=== PATIENT | male | born 1980 | race Caucasian/White ===

== ENCOUNTER 2017-05-29 07:37 | Emergency (ER) | payer SELFPAY ==
--- NOTE | 2017-05-29 08:03 | Emergency Department Record ---
History of Present Illness - General Chief complaint: Flank Pain Stated complaint: KIDNEY STONE Time Seen by Provider: 05/29/17 07:52 Source: Patient, RN notes reviewed Mode of Arrival: Ambulatory - History of Present Illness Initial comments: suprapubic abdominal pain and radiates into the bladder and [facility] and no signs of UTI(apr). Patient denies STD and one sexual partner in [facility] but doesn't talk to her much. Dripping from the penis. Patient said he has been having some [place]om[place] suprapubic since 2017. The pain got worse couple hours ago. MD Complaint: Dysuria Onset/Timin -: Days(s) Location: Abdomen, Penis, Left flank, Right flank - Related Data Previous Rx's Medication Instructions Recorded Hydrocodone/Acetaminophen [[place] 1 each PO Q6HR #20 tablet 05/29/17 5-325 Tablet] Allergies Allergy/AdvReac Type Severity Reaction Status Date / Time No Known Drug Allergies Allergy Verified 05/29/17 07:39 Travel Screening - Travel/Exposure Within Last 30 Days Have you traveled within the last 30 days?: No - Travel/Exposure Within Last Year Have you traveled outside the [place] in the last year?: No - Additonal Travel Details Have you been exposed to anyone with a communicable illness?: No - Travel Symptoms Symptom Screening: None Review of Systems Reviewed: No additional complaints except as noted below Constitutional: Reports: As per HPI. Denies: Chills, Fever, Malaise, Night sweats, Weakness, Weight change Eyes: Reports: As per HPI. Denies: Eye discharge, Eye pain, Photophobia, Vision change ENT: Reports: As per HPI. Denies: Congestion, Dental pain, Ear pain, Epistaxis , Hearing loss, Throat pain Respiratory: Reports: As per HPI. Denies: Cough, Dyspnea, Hemoptysis, Stridor, Wheezes Cardiovascular: Reports: As per HPI. Denies: Arrhythmia, Chest pain, Dyspnea on exertion, Edema, Murmurs, Orthopnea, Palpitations, Paroxysmal nocturnal dyspnea, Rheumatic Fever, Syncope Endocrine: Reports: As per HPI. Denies: Fatigue, Heat or cold intolerance, Polydipsia, Polyuria Gastrointestinal: Reports: As per HPI. Denies: Abdominal pain, Constipation, Diarrhea, Hematemesis, Hematochezia, Melena, Nausea, Vomiting Genitourinary: Reports: As per HPI, Dysuria. Denies: Frequency, Hematuria, Incontinence, Retention, Testicular pain, Testicular mass, Urgency Musculoskeletal: Reports: As per HPI. Denies: Arthralgia, Back pain, Gout, Joint swelling, Myalgia, Neck pain Skin: Reports: As per HPI. Denies: Bruising, Change in color, Change in hair/ nails, Lesions, Pruritus, Rash Neurological: Reports: As per HPI. Denies: Abnormal gait, Confusion, Headache, Numbness, Paresthesias, Seizure, Tingling, Tremors, Vertigo, Weakness Psychiatric: Reports: As per HPI. Denies: Anxiety, Auditory hallucinations, Depression, Homicidal thoughts, Suicidal thoughts, Visual hallucinations Hematological/Lymphatic: Reports: As per HPI. Denies: Anemia, Blood Clots, Easy bleeding, Easy bruising, Swollen glands Past Medical History - SOCIAL HISTORY Smoking Status: Light tobacco smoker (<10/day) Alcohol Use: None Drug Use Detail:: Marijuana - RESPIRATORY Hx Respiratory Disorders: No - CARDIOVASCULAR Hx Cardio Disorders: No - NEURO Hx Neuro Disorders: No - GI Hx GI Disorders: Yes Hx Irritable Bowel: Yes - Hx Genitourinary Disorders: Yes - ENDOCRINE Hx Endocrine Disorders: No - MUSCULOSKELETAL Hx Musculoskeletal Disorders: No - PSYCH Hx Psych Problems: No - HEMATOLOGY/ONCOLOGY Hx Hematology/Oncology Disorders: No Family Medical History Any Significant Family History?: Yes Family Hx Comment (NOT TO BE USED IN PLACE OF ITEMS BELOW): Mom has MS, Aunt diabetic, uncles have MD. Physical Exam - General General Appearance: Alert, Oriented x3, Cooperative, No acute distress, Moderate distress - Head Head exam: Normal inspection - Eye Eye exam: Normal appearance, PERRL Pupils: Normal accommodation - ENT ENT exam: Normal exam, Mucous membranes moist, Normal external ear exam, Normal orophraynx, TM's normal bilaterally Ear exam: Normal external inspection. negative: External canal tenderness Nasal Exam: Normal inspection. negative: Discharge, Sinus tenderness Mouth exam: Normal external inspection, Tongue normal Teeth exam: Normal inspection. negative: Dental caries Throat exam: Normal inspection. negative: Tonsillar erythema, Tonsillar exudate - Neck Neck exam: Normal inspection, Full ROM. negative: Tenderness - Respiratory Respiratory exam: Normal lung sounds bilaterally. negative: Respiratory distress - Cardiovascular Cardiovascular Exam: Regular rate, Normal rhythm, Normal heart sounds - GI/Abdominal GI/Abdominal exam: Soft, Tenderness - Rectal Rectal exam: Normal prostate. negative: Black stool, Bloody stool, Decreased rectal tone, Fecal impaction, Prostate enlargement, Prostate tenderness, Tenderness - exam: Normal inspection, Urethral discharge - Extremities Extremities exam: Normal inspection, Full ROM, Normal capillary refill. negative: Tenderness - Back Back exam: Reports: Normal inspection, Full ROM. Denies: Muscle spasm, Rash noted, Tenderness - Neurological Neurological exam: Alert, Normal gait, Oriented X3, Reflexes normal - Psychiatric Psychiatric exam: Normal affect, Normal mood - Skin Skin exam: Dry, Intact, Normal color, Warm Course Vital Signs 05/29/17 07:39 Temperature 97.9 F Pulse Rate 79 Respiratory 12 Rate Blood Pressure 141/105 Pulse Ox 99 - Reevaluation(s) Reevaluation #1: patient pain free now 05/29/17 10:15 Medical Decision Making - Data Complexity MDM Data: Labs Ordered and/or Reviewed, X-Ray Ordered and/or Reviewed (CT scan kidney stone at the UV junction. 5mm) - Lab Data Result diagrams: 05/29/17 08:10 05/29/17 08:10 Disposition Clinical Impression: Dysuria, Kidney stone on right side Abdominal pain Qualifiers: Abdominal location: lower abdomen, unspecified Qualified Code(s): R10.30 - Lower abdominal pain, unspecified Hydronephrosis Qualifiers: Hydronephrosis type: with renal calculous obstruction Qualified Code(s): N13.2 - Hydronephrosis with renal and ureteral calculous obstruction Disposition: Home, Self-Care Condition: (1) Good Instructions: Flank Pain (ED), Kidney Stones (ED), How to Strain Your Urine (ED ) Additional Instructions: follow up with Dr mcdaniel in 8 days return if fever, vomiting or severe pain norco for severe pain or use tylenol or motrin OTC for mild pain. save stone for analysis Prescriptions: Hydrocodone/Acetaminophen [[place] 5-325 Tablet] 1 each PO Q6HR #20 tablet Forms: Patient Portal Access Time of Disposition: 10:14 Quality - Quality Measures Quality Measures: N/A - Blood Pressure Screening Does Patient Have Any of the Following: No Blood Pressure Classification: Hypertensive Reading Systolic Measurement: 141 Diastolic Measurement: 105 Screening for High Blood Pressure: < Pre-Hypertensive BP, F/U Documented > [ G8950] Pre-Hypertensive Follow-up Interventions: Referral to alternative/primary care provider.
[2017-05-29] MEDS: KETOROLAC 30 MG/ML VIAL IVP ONE (08:16)
[2017-05-29] MEDS: 0.9 % SODIUM CHLORIDE 1,000 ML BAG IV ONE (08:16)
[2017-05-29 08:23] LABS: BASO % 0.7 % (0-6); EOS % 5.1 % (0-6); GRAN % 67.5 % (47-80); HEMATOCRIT 47.5 % (42.0-52.0); HEMOGLOBIN 16.8 gm/dl (14.0-18.0); LYMPH % 17.6 % (16-45); MEAN CELL VOLUME 79.8 fl (81-97); MEAN CORPUSCULAR HEMOGLOBIN 28.2 pg (27-33); MEAN CORPUSCULAR HGB CONC 35.4 g/dl (32-36); MEAN PLATELET VOLUME 9.4 fl (7.4-10.4); MONO % 9.1 % (0-9); PLATELET COUNT 324 K/uL (130-400); RED BLOOD COUNT 5.95 M/uL (4.40-5.70); RED CELL DISTRIBUTION WIDTH 12.5 % (11.5-14.5); WHITE BLOOD COUNT W/O DIFF 9.1 K/uL (4.2-12.2)
[2017-05-29 08:26] LABS: URINE APPEARANCE CLEAR; URINE BILIRUBIN NEGATIVE (NEGATIVE); URINE BLOOD LARGE (NEGATIVE); URINE COLOR YELLOW; URINE GLUCOSE (UA) NEGATIVE (NEGATIVE); URINE KETONE NEGATIVE (NEGATIVE); URINE LEUKOCYTE ESTERASE NEGATIVE (NEGATIVE); URINE NITRITE NEGATIVE (NEGATIVE); URINE PROTEIN NEGATIVE (NEGATIVE); URINE UROBILINOGEN 0.2 E.U./dL (0.20 - 1.00)
[2017-05-29 08:28] LABS: AMPHETAMINE SCREEN URINE NOT DETECTED; BARBITURATE SCREEN URINE NOT DETECTED; BENZODIAZEPINE SCREEN URINE NOT DETECTED; COCAINE SCREEN URINE NOT DETECTED; METHADONE SCREEN URINE NOT DETECTED; METHAMPHETAMINE SCREEN NOT DETECTED; OPIATE SCREEN URINE NOT DETECTED; OXYCODONE SCREEN URINE NOT DETECTED; PHENCYCLIDINE SCREEN URINE NOT DETECTED; PROPOXYPHENE SCREEN URINE NOT DETECTED; THC SCREEN URINE DETECTED; TRICYCLIC ANTIDEPRESSANT SCRN NOT DETECTED
[2017-05-29 08:32] LABS: BLOOD UREA NITROGEN 8 mg/dL (6-20)
[2017-05-29 08:33] LABS: CREATININE 0.9 mg/dL (0.7-1.2); EST GLOMERULAR FILTRATION RATE > 60 mL/min; URINE BACTERIA FEW; URINE EPITHELIAL CELLS 0 - 2 (FEW); URINE WBC 0 - 2 (0-2/hpf)
[2017-05-29 08:35] LABS: GLUCOSE,RANDOM 107 mg/dL (74-109)
[2017-05-29 08:38] LABS: LIPASE 41 U/L (13-60)
--- NOTE | 2017-05-29 10:22 | Emergency Department Record ---
History of Present Illness - General Chief complaint: Flank Pain Stated complaint: KIDNEY STONE Time Seen by Provider: 05/29/17 07:52 Source: Patient, RN notes reviewed Mode of Arrival: Ambulatory - History of Present Illness Onset/Timin -: Days(s) Location: Abdomen, Penis, Left flank, Right flank - Related Data Previous Rx's Medication Instructions Recorded Hydrocodone/Acetaminophen [[place] 1 each PO Q6HR #20 tablet 05/29/17 5-325 Tablet] Tamsulosin HCl [Flomax] 0.4 mg PO DAILY #10 cap.er.24h 05/29/17 Allergies Allergy/AdvReac Type Severity Reaction Status Date / Time No Known Drug Allergies Allergy Verified 05/29/17 07:39 Travel Screening - Travel/Exposure Within Last 30 Days Have you traveled within the last 30 days?: No - Travel/Exposure Within Last Year Have you traveled outside the [place] in the last year?: No - Additonal Travel Details Have you been exposed to anyone with a communicable illness?: No - Travel Symptoms Symptom Screening: None Review of Systems Constitutional: Reports: As per HPI. Denies: Chills, Fever, Malaise, Night sweats, Weakness, Weight change Eyes: Reports: As per HPI. Denies: Eye discharge, Eye pain, Photophobia, Vision change ENT: Reports: As per HPI. Denies: Congestion, Dental pain, Ear pain, Epistaxis , Hearing loss, Throat pain Respiratory: Reports: As per HPI. Denies: Cough, Dyspnea, Hemoptysis, Stridor, Wheezes Cardiovascular: Reports: As per HPI. Denies: Arrhythmia, Chest pain, Dyspnea on exertion, Edema, Murmurs, Orthopnea, Palpitations, Paroxysmal nocturnal dyspnea, Rheumatic Fever, Syncope Endocrine: Reports: As per HPI. Denies: Fatigue, Heat or cold intolerance, Polydipsia, Polyuria Gastrointestinal: Reports: As per HPI. Denies: Abdominal pain, Constipation, Diarrhea, Hematemesis, Hematochezia, Melena, Nausea, Vomiting Genitourinary: Reports: As per HPI, Dysuria. Denies: Frequency, Hematuria, Incontinence, Retention, Testicular pain, Testicular mass, Urgency Musculoskeletal: Reports: As per HPI. Denies: Arthralgia, Back pain, Gout, Joint swelling, Myalgia, Neck pain Skin: Reports: As per HPI. Denies: Bruising, Change in color, Change in hair/ nails, Lesions, Pruritus, Rash Neurological: Reports: As per HPI. Denies: Abnormal gait, Confusion, Headache, Numbness, Paresthesias, Seizure, Tingling, Tremors, Vertigo, Weakness Psychiatric: Reports: As per HPI. Denies: Anxiety, Auditory hallucinations, Depression, Homicidal thoughts, Suicidal thoughts, Visual hallucinations Hematological/Lymphatic: Reports: As per HPI. Denies: Anemia, Blood Clots, Easy bleeding, Easy bruising, Swollen glands Past Medical History - SOCIAL HISTORY Smoking Status: Light tobacco smoker (<10/day) Alcohol Use: None Drug Use Detail:: Marijuana - RESPIRATORY Hx Respiratory Disorders: No - CARDIOVASCULAR Hx Cardio Disorders: No - NEURO Hx Neuro Disorders: No - GI Hx GI Disorders: Yes Hx Irritable Bowel: Yes - Hx Genitourinary Disorders: Yes - ENDOCRINE Hx Endocrine Disorders: No - MUSCULOSKELETAL Hx Musculoskeletal Disorders: No - PSYCH Hx Psych Problems: No - HEMATOLOGY/ONCOLOGY Hx Hematology/Oncology Disorders: No Family Medical History Any Significant Family History?: Yes Family Hx Comment (NOT TO BE USED IN PLACE OF ITEMS BELOW): Mom has MS, Aunt diabetic, uncles have MD. Course Vital Signs 05/29/17 05/29/17 07:39 09:10 Temperature 97.9 F 98.7 F Pulse Rate 79 Pulse Rate [ 87 Pulse Ox Probe] Respiratory 12 14 Rate Blood Pressure 141/105 Blood Pressure 128/89 [Left Arm] Pulse Ox 99 98 Medical Decision Making - Lab Data Result diagrams: 05/29/17 08:10 05/29/17 08:10 Lab Results 05/29/17 05/29/17 05/29/17 Range/Units 08:10 08:10 08:10 WBC 9.1 (4.2-12.2) K/uL RBC 5.95 H (4.40-5.70) M/uL Hgb 16.8 (14.0-18.0) gm/dl Hct 47.5 (42.0-52.0) % MCV 79.8 L (81-97) fl MCH 28.2 (27-33) pg MCHC 35.4 (32-36) g/dl RDW 12.5 (11.5-14.5) % Plt Count 324 (130-400) K/uL MPV 9.4 (7.4-10.4) fl Gran % 67.5 (47-80) % Lymphocytes % 17.6 (16-45) % Monocytes % 9.1 H (0-9) % Eosinophils % 5.1 (0-6) % Basophils % 0.7 (0-6) % Sodium 137 (136-145) mmol/L Potassium 3.5 (3.4-4.5) mmol/L Chloride 99 (98-107) mmol/L Carbon Dioxide 24.0 (22-29) mmol/L Anion Gap 14.0 (7-16) BUN 8 (6-20) mg/dL Creatinine 0.9 (0.7-1.2) mg/dL Estimated GFR > 60 mL/min Random Glucose 107 (74-109) mg/dL Calcium 9.1 (8.6-10.0) mg/dL Lipase 41 (13-60) U/L Urine Color Yellow Urine Appearance Clear Urine pH 6.0 (5.0-8.0) Ur Specific [place] <= 1.005 (1.002-1.030) Urine Protein Negative (NEGATIVE) Urine Glucose (UA) Negative (NEGATIVE) Urine Ketones Negative (NEGATIVE) Urine Blood Large H (NEGATIVE) Urine Nitrite Negative (NEGATIVE) Urine Bilirubin Negative (NEGATIVE) Urine Urobilinogen 0.2 (0.20 - 1.00) E.U./dL Ur Leukocyte Esterase Negative (NEGATIVE) Urine RBC 7 - 10 (NONE SEEN) Urine WBC 0 - 2 (0-2/hpf) Ur Epithelial Cells 0 - 2 (FEW) Urine Bacteria Few Urine Opiates Screen Ur Oxycodone Screen Urine Methadone Screen Ur Propoxyphene Screen Ur Barbituates Screen Ur Tricyclics Screen Ur Phencyclidine Scrn Ur Amphetamine Screen U Methamphetamines Scrn U Benzodiazepines Scrn Urine Cocaine Screen Urine Cannabis Screen 05/29/17 Range/Units 08:10 WBC (4.2-12.2) K/uL RBC (4.40-5.70) M/uL Hgb (14.0-18.0) gm/dl Hct (42.0-52.0) % MCV (81-97) fl MCH (27-33) pg MCHC (32-36) g/dl RDW (11.5-14.5) % Plt Count (130-400) K/uL MPV (7.4-10.4) fl Gran % (47-80) % Lymphocytes % (16-45) % Monocytes % (0-9) % Eosinophils % (0-6) % Basophils % (0-6) % Sodium (136-145) mmol/L Potassium (3.4-4.5) mmol/L Chloride (98-107) mmol/L Carbon Dioxide (22-29) mmol/L Anion Gap (7-16) BUN (6-20) mg/dL Creatinine (0.7-1.2) mg/dL Estimated GFR mL/min Random Glucose (74-109) mg/dL Calcium (8.6-10.0) mg/dL Lipase (13-60) U/L Urine Color Urine Appearance Urine pH (5.0-8.0) Ur Specific [place] (1.002-1.030) Urine Protein (NEGATIVE) Urine Glucose (UA) (NEGATIVE) Urine Ketones (NEGATIVE) Urine Blood (NEGATIVE) Urine Nitrite (NEGATIVE) Urine Bilirubin (NEGATIVE) Urine Urobilinogen (0.20 - 1.00) E.U./dL Ur Leukocyte Esterase (NEGATIVE) Urine RBC (NONE SEEN) Urine WBC (0-2/hpf) Ur Epithelial Cells (FEW) Urine Bacteria Urine Opiates Screen Not detected Ur Oxycodone Screen Not detected Urine Methadone Screen Not detected Ur Propoxyphene Screen Not detected Ur Barbituates Screen Not detected Ur Tricyclics Screen Not detected Ur Phencyclidine Scrn Not detected Ur Amphetamine Screen Not detected U Methamphetamines Scrn Not detected U Benzodiazepines Scrn Not detected Urine Cocaine Screen Not detected Urine Cannabis Screen Detected Disposition Clinical Impression: Dysuria, Kidney stone on right side Abdominal pain Qualifiers: Abdominal location: lower abdomen, unspecified Qualified Code(s): R10.30 - Lower abdominal pain, unspecified Hydronephrosis Qualifiers: Hydronephrosis type: with renal calculous obstruction Qualified Code(s): N13.2 - Hydronephrosis with renal and ureteral calculous obstruction Disposition: Home, Self-Care Condition: (1) Good Instructions: Kidney Stones (ED), How to Strain Your Urine (ED), Flank Pain (ED ) Additional Instructions: follow up with Dr mcdaniel in 8 days return if fever, vomiting or severe pain norco for severe pain or use tylenol or motrin OTC for mild pain. save stone for analysis Prescriptions: Hydrocodone/Acetaminophen [[place] 5-325 Tablet] 1 each PO Q6HR #20 tablet Tamsulosin HCl [Flomax] 0.4 mg PO DAILY #10 cap.er.24h Forms: Patient Portal Access Time of Disposition: 10:21 Quality - Quality Measures Quality Measures: N/A - Blood Pressure Screening Does Patient Have Any of the Following: No Blood Pressure Classification: Hypertensive Reading Systolic Measurement: 141 Diastolic Measurement: 105 Screening for High Blood Pressure: < Pre-Hypertensive BP, F/U Documented > [ G8950] Pre-Hypertensive Follow-up Interventions: Referral to alternative/primary care provider.
[2017-05-29] MEDS: TAMSULOSIN HCL 0.4 MG CAP.ER.24H PO ONE (10:37)
--- NOTE | 2017-05-30 13:01 | CT SCAN REPORT ---
EXAM: EMERGENCY CT OF THE ABDOMEN AND PELVIS WITHOUT CONTRAST HISTORY: RIGHT FLANK PAIN AND SUPRAPUBIC PAIN FOR APPROXIMATELY THREE MONTHS. TECHNIQUE: Axial CT scan of the abdomen and pelvis was performed without oral or IV contrast. Comparison: None. FINDINGS: No calcified gallstones are seen within the gallbladder. No intrarenal calculi seen on the right, however, there are a couple small calcifications in the lower pole of the right kidney consistent with currently nonobstructing intrarenal calculi. There is also mild hydronephrosis and hydroureter on the right with the dilated right ureter followed down into the pelvis where it leads to a calcification approximately 5 mm in diameter at or just before the right UVJ consistent with a distal right ureteral calculus causing a component of obstruction. No actual bladder calculus seen. No hydronephrosis or hydroureter on the left with no left ureteral calculus evident. There is a small right inguinal hernia containing adipose tissue, but no bowel. Evaluation of the bowel and viscera is limited by the lack of oral and IV contrast. Given this limitation, no definite hepatic, splenic, adrenal, pancreatic, or renal mass identified. There is probably a small calcified appendicolith within the nondilated appendix with no findings to suggest acute appendicitis currently. The lung bases appear clear. No free intraperitoneal air or free intraperitoneal fluid identified. IMPRESSION: 1. APPROXIMATELY 5 MM DISTAL RIGHT URETERAL CALCULUS CAUSING A COMPONENT OF OBSTRUCTION ON THE RIGHT. 2. THERE ARE ALSO A COUPLE CURRENTLY NONOBSTRUCTING INTRARENAL CALCULI IN THE LOWER POLE OF THE RIGHT KIDNEY. 3. THERE IS PROBABLY A SMALL CALCIFIED APPENDICOLITH ALTHOUGH NO FINDINGS TO SUGGEST ACUTE APPENDICITIS CURRENTLY. JOB NUMBER: [id number] [facility]
== END 2017-05-29 10:41 | disposition home or self-care (01) ==
LOC: ER 07:37
DX: N13.2 Hydronephrosis with renal and ureteral calculous obstruction (principal); R30.0 Dysuria; R10.30 Lower abdominal pain, unspecified; F17.210 Nicotine dependence, cigarettes, uncomplicated
CPT/HCPCS: 74176; 80048; 80305; 81001; 83690; 85025; 96374; 99284; J1885; J7030

== ENCOUNTER 2019-03-31 12:04 | Observation (INO) | payer SELFPAY ==
[2019-03-31] MEDS ORDERED: KETOROLAC 30 MG/ML VIAL IVP ONE (12:10)
--- NOTE | 2019-03-31 12:15 | Emergency Department Record ---
History of Present Illness - General Chief Complaint: Abdominal Pain Stated Complaint: ABD PAIN Time Seen by Provider: 03/31/19 12:09 Source: Patient Mode of Arrival: Ambulatory Limitations: No limitations - History of Present Illness Initial Comments: 38 yo male presents with right sided pain. The onset was on Saturday. The pain initially seemed to come and go. The pain has become more constant now. He has felt hot at times but no measured fever. No nausea, vomiting, diarrhea. No changes in his urination or bowel movements. No rash. No changes in his appetite. Certain positions seem to cause more than that others. No known trauma. No abdominal surgery history. Food does not effect the pain. MD Complaint: Abdominal pain -: Days(s) (5) Location: R Flank, RUQ, RLQ Radiation: R flank, RUQ, RLQ Migration to: R Flank, RUQ, RLQ Quality: Aching Consistency: Constant Improves With: Rest Worsens With: Movement, Other (certain positions) Associated Symptoms: Denies other symptoms - Related Data Home Medications Medication Instructions Recorded Confirmed Last Taken No Home Med [NO HOME MEDS] 03/31/19 03/31/19 Unknown Allergies Allergy/AdvReac Type Severity Reaction Status Date / Time No Known Drug Allergies Allergy Verified 05/29/17 07:39 Review of Systems Constitutional: Denies: Chills, Fever (felt hot at times), Malaise, Weakness Eyes: Denies: Eye discharge, Eye pain, Vision change ENT: Denies: Congestion, Throat pain Respiratory: Denies: Cough, Dyspnea, Hemoptysis, Wheezes Cardiovascular: Denies: Chest pain, Palpitations, Syncope Endocrine: Denies: Fatigue, Polydipsia, Polyuria Gastrointestinal: Reports: Abdominal pain. Denies: Constipation, Diarrhea, Hematemesis, Melena, Nausea, Vomiting Genitourinary: Denies: Dysuria, Frequency, Hematuria Musculoskeletal: Denies: Arthralgia, Back pain, Joint swelling, Myalgia Skin: Denies: Bruising, Change in color, Rash Neurological: Denies: Headache, Numbness, Weakness Psychiatric: Denies: Anxiety Hematological/Lymphatic: Denies: Easy bleeding, Easy bruising Past Medical History - SOCIAL HISTORY Smoking Status: Light tobacco smoker (<10/day) Drug Use Detail:: Marijuana - RESPIRATORY Hx Respiratory Disorders: No - CARDIOVASCULAR Hx Cardio Disorders: No - NEURO Hx Neuro Disorders: No - GI Hx GI Disorders: Yes Hx Irritable Bowel: Yes - Hx Genitourinary Disorders: Yes - ENDOCRINE Hx Endocrine Disorders: No - MUSCULOSKELETAL Hx Musculoskeletal Disorders: No - PSYCH Hx Psych Problems: No - HEMATOLOGY/ONCOLOGY Hx Hematology/Oncology Disorders: No Family Medical History Family Hx Comment (NOT TO BE USED IN PLACE OF ITEMS BELOW): Mom has MS, Aunt diabetic, uncles have MD. Physical Exam - General General Appearance: Alert, Oriented x3, Cooperative, No acute distress Limitations: No limitations - Head Head exam: Atraumatic, Normal inspection - Eye Eye exam: Normal appearance, PERRL. negative: Conjunctival injection, Scleral icterus - ENT ENT exam: Normal exam, Mucous membranes moist, Normal orophraynx Ear exam: Normal external inspection Nasal Exam: Normal inspection Mouth exam: Normal external inspection - Neck Neck exam: Normal inspection - Respiratory Respiratory exam: Normal lung sounds bilaterally. negative: Accessory muscle use, Chest wall tenderness, Decreased breath sounds, Prolonged expiratory, Respiratory distress, Rhonchi, Stridor, Wheezes - Cardiovascular Cardiovascular Exam: Regular rate, Normal rhythm, Normal heart sounds - GI/Abdominal GI/Abdominal exam: Soft, Normal bowel sounds, Tenderness (mild tenderness later al and superior to the level of the umbilicus, no RLQ tenderness on examination). negative: Distended, Guarding, Rebound, Rigid - Rectal Rectal exam: Deferred - exam: Deferred - Extremities Extremities exam: Normal inspection. negative: Pedal edema, Tenderness - Back Back exam: Reports: CVA tenderness (R), Full ROM. Denies: CVA tenderness (L), Paraspinal tenderness, Tenderness - Neurological Neurological exam: Alert, Oriented X3 - Psychiatric Psychiatric exam: Normal affect, Normal mood. negative: Agitated, Anxious - Skin Skin exam: Dry, Intact, Normal color, Warm Course - Reevaluation(s) Reevaluation #1: 03/31/19 12:39 The CBC was reviewed The WBC is 15. The BMP is normal 03/31/19 13:[address] is consistent with acute uncomplicated appendicitis. Appendicolith noted Dr Metcalf will be contacted IVF, NPO, and antibiotics given 03/31/19 13:34 DR Quiñonez will take the patient to the OR at [facility] Medical Decision Making - Lab Data Result diagrams: 03/31/19 12:15 03/31/19 12:15 Disposition Disposition: Discharge Clinical Impression: Appendicitis Qualifiers: Appendicitis type: acute appendicitis Acute appendicitis type: unspecified acute appendicitis type Qualified Code(s): K35.80 - Unspecified acute appendicitis Disposition: Home, Self-Care Condition: (1) Good Additional Instructions: Discharge to outpatient surgery Forms: Patient Portal Access Time of Disposition: 13:17 Quality - Quality Measures Quality Measures: N/A - Blood Pressure Screening Does Patient Have Any of the Following: No Blood Pressure Classification: Pre-Hypertensive BP Reading Systolic Measurement: 128 Diastolic Measurement: 78 Screening for High Blood Pressure: < Pre-Hypertensive BP, F/U Documented > [G8950] Pre-Hypertensive Follow-up Interventions: Referral to alternative/primary care provider.
[2019-03-31 12:25] LABS: HEMATOCRIT 45.6 % (42.0-52.0); HEMOGLOBIN 15.4 gm/dl (14.0-18.0); MEAN CORPUSCULAR HEMOGLOBIN 27.7 pg (27-33); MEAN CORPUSCULAR HGB CONC 33.8 g/dl (32-36); MEAN PLATELET VOLUME 8.8 fl (7.4-10.4); PLATELET COUNT 329 K/uL (130-400); RED BLOOD COUNT 5.56 M/uL (4.40-5.70); RED CELL DISTRIBUTION WIDTH 12.3 % (11.5-14.5); WHITE BLOOD COUNT W/O DIFF 15.6 K/uL (4.2-12.2)
[2019-03-31 12:35] LABS: BLOOD UREA NITROGEN 14 mg/dL (6-20); CREATININE 0.9 mg/dL (0.7-1.2); EST GLOMERULAR FILTRATION RATE > 60 mL/min
[2019-03-31 12:36] LABS: LIPASE 35 U/L (13-60); TOTAL PROTEIN 7.6 g/dL (6.6-8.7)
[2019-03-31 12:38] LABS: GLUCOSE,RANDOM 106 mg/dL (74-109)
[2019-03-31 12:40] LABS: ALB/GLOB RATIO 1.4 (1.1-1.8); ALBUMIN 4.4 g/dL (4.0-5.0); ALT/SGPT 50 U/L (<41); AST/SGOT 20 U/L (10.0-50.0)
[2019-03-31 12:41] LABS: ALKALINE PHOSPHATASE 93 U/L (40-129)
[2019-03-31] MEDS ORDERED: MAGNESIUM HYDROXIDE/AL HYDROX 30 ML, LIDOCAINE VISC 2% 15ML 15 ML PO ONE ×2 (12:51)
[2019-03-31] MEDS ORDERED: ERTAPENEM SODIUM 1 G in 0.9 % SODIUM CHLORIDE 100ML 100 ML IVPB ONE (12:57)
[2019-03-31] MEDS ORDERED: 0.9 % SODIUM CHLORIDE 1,000 ML BAG IV ONE (12:57)
--- NOTE | 2019-03-31 13:06 | CT SCAN REPORT ---
EXAMINATION: CT Abdomen and Pelvis with IV Contrast EXAM DATE: 03/31/2019 12:53 PM TECHNIQUE: CT imaging of the abdomen and pelvis was performed with intravenous contrast. Coronal and sagittal images were reconstructed. IV Contrast: The amount and type of contrast are recorded in the medical record. INDICATION: right side pain COMPARISON: None ENCOUNTER: Not applicable CT ABDOMEN AND PELVIS FINDINGS: Lung Bases: Included extent of the lung bases are clear. Hepatobiliary: The liver has a normal size with a smooth surface. The hepatic and portal veins appear patent. Normal gallbladder. Pancreas: The pancreas is normal. Spleen: The spleen is not enlarged. Adrenals: The adrenal glands are normal. Kidneys, Ureters, & Bladder: Both kidneys have a normal size and there is no hydronephrosis. A small , 3 mm nonobstructing right renal calculus. Normal urinary bladder. Gastrointestinal: The stomach and small bowel are normal with no obstruction or inflammation. The brandon endix is dilated and fluid-filled, measuring 14 mm, with extensive periappendiceal inflammatory stran ding consistent with acute appendicitis. An appendicolith is present near the base of the appendix. T here is no free intraperitoneal air or fluid collection to suggest perforation. The large bowel is n ormal. Reproductive Organs: Unremarkable Lymphatic System: There is no adenopathy within the abdomen or pelvis. Vasculature: Normal caliber abdominal aorta. Peritoneum: No free fluid, free air, or inflammation Abdominal Wall & Musculoskeletal: No suspicious bone lesions. IMPRESSION: Acute uncomplicated appendicitis. Dictated by: Davidson Murillo MD on 03/31/2019 1:02 PM. .
[2019-03-31] MEDS ORDERED: MORPHINE SULFATE 5 MG/ML VIAL IVP ONE (13:55)
[2019-03-31] MEDS ORDERED: MECLIZINE 25 MG TABLET PO ONE ×2 (14:00→14:32)
[2019-03-31] MEDS ORDERED: METOCLOPRAMIDE 10 MG TABLET PO ONE (14:00)
[2019-03-31] MEDS ORDERED: FAMOTIDINE 20MG TABLET PO ONE (14:00)
[2019-03-31] MEDS ORDERED: ACETAMINOPHEN 1,000 MG/100 ML BTL IVPB ONE (14:00)
[2019-03-31] MEDS ORDERED: 0.9 % SODIUM CHLORIDE 1000ML 1,000 ML IV ONE (15:01)
[2019-03-31] MEDS ORDERED: RINGERS SOLUTION,LACTATED 1,000 ML IV ONE ×2 (15:15→15:56)
[2019-03-31] MEDS ORDERED: BUPIVACAINE 0.25% W/EPI MPF 30ML VIAL SQ ONE ×2 (15:27)
[2019-03-31] MEDS ORDERED: ONDANSETRON HCL IV 4 MG/2 ML VIAL IVP ONE (17:00)
[2019-03-31] MEDS ORDERED: HYDROCODONE/APAP 5/325MG TABLET PO PRN ×2 (18:18→18:19)
[2019-03-31] MEDS ORDERED: HYDROMORPHONE HCL 2 MG/ML VIAL IVP PRN (18:26)
[2019-03-31] MEDS ORDERED: ONDANSETRON HCL IV 4 MG/2 ML VIAL IVP PRN (18:32)
[2019-03-31] MEDS ORDERED: ERTAPENEM SODIUM 1 G in 0.9 % SODIUM CHLORIDE 100ML 100 ML IVPB SCH (21:00)
[2019-03-31] MEDS: RINGERS SOLUTION,LACTATED 1,000 ML IV PRN (21:51)
[2019-04-01] MEDS: RINGERS SOLUTION,LACTATED 1,000 ML IV PRN (06:28)
[2019-04-01] MEDS ORDERED: ERTAPENEM SODIUM 1 G in 0.9 % SODIUM CHLORIDE 100ML 100 ML IVPB SCH (09:00)
--- NOTE | 2019-04-01 12:50 | Operative Note ---
DATE OF SURGERY: 03/31/2019 SURGEON: Santos Quiñonez DO PREOPERATIVE DIAGNOSIS: Acute appendicitis. POSTOPERATIVE DIAGNOSIS: Acute appendicitis, ruptured appendix. OPERATION: Laparoscopic appendectomy with drain placement. INDICATION: The patient is a 38-year-old male who has had a 3- to 4-day history of abdominal pain. He came to the ER where workup was done. This did show findings consistent with acute appendicitis. Clinical exam fit the same. Risks, benefits, and alternatives were discussed. Risks include bleeding, infection, postop abscess formation, delayed or repeat operation. He understood this fully. Thereafter, consent was signed, questions answered. PROCEDURE: He was taken to the operating room and placed in the supine position. General anesthesia was administered per the department of anesthesia. The patient's left arm was tucked to the side and his abdomen was shaved of hair and prepped in the usual sterile fashion. Adequate timeout was performed. He did receive preoperative antibiotics as well as DVT prophylaxis. At this time, the infraumbilical region was anesthetized with a total of 2 mL of 0.25% Sensorcaine with epinephrine. A 2 cm infraumbilical incision was made. This was carried down to the anterior rectus fascia. This was incised. Elle clamps were placed on the fascial edges and brought up into the wound. Stay sutures of 0 Vicryl were placed. Posterior rectus sheath was identified and incised. The peritoneal cavity was entered bluntly. At this time, a 10 mm blunt Robbie port was placed. Adequate pneumoperitoneum established. The patient was rotated into Trendelenburg position as well as rotation to the left. Additional 5 mm right subcostal and 5 mm suprapubic ports were placed. General exam was done. The patient had extreme dense inflammatory changes in the right mid abdomen. The ileum was stuck to the sidewall. This was peeled away exposing an abscess cavity where a ruptured appendix was encountered. The patient had densely inflamed mesoappendix. I did have to switch to a traumatic grasper to lift this anteriorly. The mesoappendix was taken down serially to the base of the cecum. There was very inflamed fat pad at the ileum as well as other inflamed fatty tissue surrounding this. This was swept inferiorly exposing the base of the appendix. The staple angle through the umbilical port was quite poor. Therefore, I did have to upsize the 5 mm right subcostal port to a 12 mm port. Here the staple line goal was much better allowing me to transect the appendix at the base of the cecum. This was placed in an EndoCatch bag and brought through the umbilical port. The patient's peritoneal cavity was irrigated with approximately 1 liter of normal saline and aspirated until clear. All the fluid was suctioned free. I did suction his pelvis and over the top of his liver. We did change positions multiple times to use gravity to our advantage. Due to the dense inflammatory nature as well as the abscess cavity, I did place a #10 flat Venu-Duncan drain along the right pericolic gutter extending down the pelvis. This was brought out through the 5 mm suprapubic port. At this time, pneumoperitoneum was released. All ports were removed. The fascia was closed with 0 Vicryl in a [id number] fashion. The skin in 2 ports was closed with 4-0 Vicryl. I sutured the drain with 3-0 nylon. He was taken to the recovery room in satisfactory condition. FINDINGS ON SURGERY: Ruptured appendix. MTDD
[2019-04-01] MEDS ORDERED: HYDROMORPHONE HCL 2 MG/ML VIAL IV ONE (12:53)
[2019-04-01] MEDS ORDERED: PROPOFOL 10 MG/ML VIAL IV ONE (12:53)
[2019-04-01] MEDS ORDERED: LIDOCAINE 2% MDV (20MG/ML) 20ML VIAL IV ONE (12:53)
[2019-04-01] MEDS ORDERED: ROCURONIUM BROMIDE 50MG/5ML VIAL IV ONE (12:53)
[2019-04-01] MEDS ORDERED: DEXAMETHASONE 4 MG/ML 1ML VIAL IVP ONE (12:53)
[2019-04-01] MEDS ORDERED: GLYCOPYRROLATE 0.2 MG/ML ML IV ONE (12:53)
[2019-04-01] MEDS ORDERED: MIDAZOLAM HCL 2MG/2ML VIAL IV ONE (12:53)
[2019-04-01] MEDS ORDERED: FENTANYL PF 100MCG/2ML VIAL IV ONE (12:53)
[2019-04-01] MEDS ORDERED: SEVOFLURANE 250 ML INH ONE (12:53)
[2019-04-01] MEDS ORDERED: SUGAMMADEX SODIUM 200 MG/2 ML VIAL IV ONE (12:53)
[2019-04-01] MEDS ORDERED: SUCCINYLCHOLINE 20 MG/ML 10ML IVP ONE (12:53)
== END 2019-04-01 12:54 | disposition home or self-care (01) ==
LOC: SUR 12:04 → MEDSURG 17:52
PROVIDERS: ADMIT Surgery; ATTEND Surgery
DX: K35.33 Acute appendicitis with perforation, localized peritonitis, and gangrene, with abscess (principal); F17.210 Nicotine dependence, cigarettes, uncomplicated; Z87.442 Personal history of urinary calculi
CPT/HCPCS: 36416; 74177; 80053; 82948; 83690; 85027; 99285; J0330; J1885; J2405; J3490; J7030; J7120